=== PATIENT | male | born 1985 | race Caucasian/White ===

== ENCOUNTER 2023-08-29 11:36 | Emergency (ER) | payer MEDICAID ==
[~2023-08-29] VITALS: Ht 172.7 cm; Wt 80.0 kg
[~2023-08-29 11:36] MED LIST: FAMO40TA70 MT; MAG-55 MT; METO-293 MT
[2023-08-29 11:53] VITALS: O2SAT 99
[2023-08-29] MEDS ORDERED: MECLIZINE 25MG TABLET PO ONE (13:00)
[2023-08-29] MEDS: MECLIZINE 12.5MG TABLET PO NR (13:09)
[2023-08-29] MEDS: METOCLOPRAMIDE HCL 10MG TABLET PO ONE (13:09)
[2023-08-29 13:11] LABS: BASOPHILS % 0.6 % (0.0-2.0); EOSINOPHILS % 3.3 % (0.0-5.0); HEMATOCRIT. 42.3 % (42.0-52.0); HEMOGLOBIN. 14.4 g/dL (14.0-18.0); MEAN CORPUSCULAR HGB CONC 34.1 g/dL (31.0-37.0); MONOCYTES % 8.7 % (2.0-8.0); NEUTROPHILS % 46.4 % (40.0-76.0); PLATELET 305 x1000/uL (130-400); RED BLOOD CELL COUNT 4.98 mill/uL (4.7-6.1); RED CELL DISTRIBUTION WIDTH 12.8 % (11.6-14.6); WHITE BLOOD COUNT 7.8 x1000/uL (4.5-11.0)
[2023-08-29 13:12] LABS: CHLORIDE 106 mEq/L (98-107); POTASSIUM 4.5 mEq/L (3.5-5.1); SODIUM 138 mEq/L (136-145)
[2023-08-29 13:13] LABS: CALCIUM 9.8 mg/dL (8.7-10.4); CARBON DIOXIDE 27 mEq/L (21-32)
[2023-08-29 13:18] LABS: GLUCOSE 84 mg/dL (70-105); UREA NITROGEN BLOOD 10 mg/dL (9-23)
[2023-08-29 13:21] LABS: ETHANOL BLOOD < 10 mg/dL (<10)
[2023-08-29] MEDS ORDERED: MECL-299 MT (14:06)
[2023-08-29 14:15] VITALS: BP 120/86; PULSE 75; RESP 16; TEMP 98
== END 2023-08-29 14:15 | disposition home or self-care (01) ==
LOC: ER 11:36
DX: R42 Dizziness and giddiness (principal); Z90.49 Acquired absence of other specified parts of digestive tract
CPT/HCPCS: 80048; 80320; 82962; 85025; 36415; 99283; J8597 ×2; G0480